=== PATIENT | male | born 1975 | race Two or more races ===

== ENCOUNTER 2020-05-30 20:57 | Emergency (ER) | payer SELFPAY ==
[~2020-05-30] VITALS: Ht 167.6 cm; Wt 85.9 kg
--- NOTE | 2020-05-30 21:30 | NUR ---
FIRST PT CONTACT: PT STATES HE CAME IN DUE TO HAVING A STROKE. PT DENIES ANY HISTORY OF STROKES. STATES EYE BEGAN DROOPING Friday, STATES VISION IS BLURRED OUT OF RIGHT EYE STARTING Friday WELL. THEN FRIDAY HE BEGAN TO HAVE SOME NUMBNESS IN HIS TONGUE AND RIGHT SIDED FACIAL DROOP. PT HAS NO DEFICITS OF THE UPPER OR LOWER EXTREMITIES. STATES ONLY PAST MEDICAL HX IS HTN AND HE NO LONGER TAKES MEDICATION FOR IT. 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 AT BS PT PLACED ON SPO2/BP/ECG MONITORING. WCTM. NAD. WAITING ON ERP EVAL.
--- NOTE | 2020-05-30 22:31 | NUR ---
PT TO CT VIA CH[facility]ELLE, NAD, NO CHANGE IN CONDITION, VSS.
--- NOTE | 2020-05-30 22:55 | NUR ---
PT BACK FROM CT, RESTING ON GURNEY, APPEARS COMFORTABLE, MEDICATED PER MAR, NO CHANGE IN CONDITION, WCTM. WAITING FOR CT READ.
[2020-05-30 23:34] VITALS: BP 116/74
--- NOTE | 2020-05-30 23:34 | NUR ---
PT GETTING DRESSED, NAD, APPEARS COMFORTABLE, MAEx4, VSS, AT , WCTM. PT TO BE DC'D
--- NOTE | 2020-05-31 00:22 | NUR ---
Patient/SPOUSE given discharge instructions and they have confirmed that they understand the instructions. Patient ambulatory with steady gait. NAD, VSS. DENIES ADDITIONAL QUESTIONS OR NEEDS AT THIS TIME. PT TOOK ALL BELONGINGS ON DC.
--- NOTE | 2020-05-31 00:23 | NUR ---
PT GIVEN EYE PATCH PRIOR TO DC.
== END 2020-05-31 00:23 | disposition home or self-care (01) ==
LOC: ED 05-31
DX: G51.0 Bell's palsy (principal); R51 Headache; I10 Essential (primary) hypertension
CPT/HCPCS: 70450; 99284; J7512